=== PATIENT | female | born 1945 | race Caucasian/White ===

== ENCOUNTER 2018-12-22 06:46 | Emergency (ER) | payer BC, MEDICARE ==
[~2018-12-22] VITALS: Ht 172.7 cm; Wt 89.5 kg
[~2018-12-22 06:46] MED LIST: MULT-955 PO; VORT10TA PO
[2018-12-22 07:02] VITALS: BP 154/57
[2018-12-22] MEDS ORDERED: OMEP40CA37 PO (07:26)
[2018-12-22] MEDS ORDERED: CHOL200052 PO (07:27)
[2018-12-22] MEDS ORDERED: NAPR-56 PO (08:33)
[2018-12-22] MEDS ORDERED: HYDR-4353 PO (08:33)
[2018-12-22] MEDS ORDERED: naproxen 500mg tablet PO ONE (08:35)
[2018-12-22] MEDS: HYDROcodone/acetaminophen 10/325mg tab PO ONE ×2 (08:57→08:58)
== END 2018-12-22 09:26 | disposition home or self-care (01) ==
LOC: ER 06:47
DX: M25.462 Effusion, left knee (principal); M25.562 Pain in left knee; G89.29 Other chronic pain; Z79.899 Other long term (current) drug therapy; Z90.710 Acquired absence of both cervix and uterus; Z90.49 Acquired absence of other specified parts of digestive tract; Z98.890 Other specified postprocedural states; W18.39XA Other fall on same level, initial encounter; Y93.89 Activity, other specified; Y92.89 Other specified places as the place of occurrence of the external cause; Y99.8 Other external cause status
CPT/HCPCS: 29505; 73564; 99283

== ENCOUNTER 2019-12-31 10:41 | Emergency (ER) | payer BC, MEDICARE ==
[~2019-12-31] VITALS: Ht 172.7 cm; Wt 98.5 kg
[~2019-12-31 10:41] MED LIST changes: +CHOL200052 PO; +OMEP40CA13 PO; -VORT10TA PO
[2019-12-31 13:34] VITALS: BP 169/92
== END 2019-12-31 13:46 | disposition home or self-care (01) ==
LOC: ER 10:41
DX: I83.92 Asymptomatic varicose veins of left lower extremity (principal); G89.29 Other chronic pain; Z90.49 Acquired absence of other specified parts of digestive tract; Z90.710 Acquired absence of both cervix and uterus; Z79.899 Other long term (current) drug therapy
CPT/HCPCS: 93971; 99284

== ENCOUNTER 2020-03-18 08:51 | Emergency (ER) | payer BC, MEDICARE ==
[~2020-03-18] VITALS: Ht 172.7 cm; Wt 90.9 kg
[2020-03-18] MEDS ORDERED: BACDS PO (09:11)
[2020-03-18 09:35] VITALS: BP 150/72
== END 2020-03-18 09:36 | disposition home or self-care (01) ==
LOC: ER 08:52
DX: L02.411 Cutaneous abscess of right axilla (principal); G89.29 Other chronic pain; Z90.49 Acquired absence of other specified parts of digestive tract; Z90.710 Acquired absence of both cervix and uterus; Z98.890 Other specified postprocedural states; Z79.899 Other long term (current) drug therapy
CPT/HCPCS: 99283

== ENCOUNTER 2021-01-01 08:53 | Emergency (ER) | payer BC, MEDICARE ==
[~2021-01-01] VITALS: Ht 172.7 cm; Wt 92.6 kg
[2021-01-01 09:06] VITALS: BP 145/91
== END 2021-01-01 10:44 | disposition home or self-care (01) ==
LOC: ER 08:53
DX: M17.12 Unilateral primary osteoarthritis, left knee (principal); M71.22 Synovial cyst of popliteal space [Baker], left knee; M25.462 Effusion, left knee; G89.29 Other chronic pain; Z90.49 Acquired absence of other specified parts of digestive tract; Z90.710 Acquired absence of both cervix and uterus; Z98.890 Other specified postprocedural states; Z79.899 Other long term (current) drug therapy; W19.XXXA Unspecified fall, initial encounter; Y93.89 Activity, other specified; Y92.89 Other specified places as the place of occurrence of the external cause; Y99.8 Other external cause status
CPT/HCPCS: 73564; 93971; 99284

== ENCOUNTER 2023-12-10 11:36 | Inpatient (IN) | payer BC, MEDICARE ==
[~2023-12-10] VITALS: Ht 172.7 cm; Wt 98.8 kg
[~2023-12-10 11:36] MED LIST changes: +LOPE2CAP PO; +MECO10005; -OMEP40CA13 PO; +OMEP40CA21 PO; +ONDA4TAB12 PO; +ZINC50TA67 PO
[2023-12-10 13:09] LABS: BASOPHILS % (AUTO) 0.3 % (0-1); EOSINOPHILS # (AUTO) 0.1 X10'3 (0-0.9); EOSINOPHILS % (AUTO) 0.6 % (0-6); HEMATOCRIT 39.2 % (35.0-45.0); LYMPHOCYTES # (AUTO) 1.5 X10'3 (1.1-4.8); LYMPHOCYTES % (AUTO) 14.2 % (21-51); MEAN CORPUSCULAR HEMOGLOBIN 30.6 PG (27.0-31.0); MEAN CORPUSCULAR HGB CONC 33.2 g/dL (33.0-36.5); MEAN CORPUSCULAR VOLUME 92.1 FL (78-98); MEAN PLATELET VOLUME 9.4 FL (7.4-10.4); MONOCYTES # (AUTO) 0.8 X10'3 (0-0.9); MONOCYTES % (AUTO) 7.9 % (2-12); NEUTROPHILS # (AUTO) 8.3 X10'3 (1.8-7.7); PLATELET COUNT 260 X10'3 (140-440); RED BLOOD COUNT 4.26 X10'6 (4.20-5.60); RED CELL DISTRIBUTION WIDTH 14.8 % (11.5-14.5); WHITE BLOOD COUNT 10.7 X10'3 (4.5-11.0)
[2023-12-10 13:20] LABS: ALBUMIN 3.9 G/DL (3.4-5.0); ANION GAP 12 (8-16); BLOOD UREA NITROGEN 29 MG/DL (7-18); BUN/CREATININE RATIO 18.6 (10.0-20.0); CALCIUM 9.7 MG/DL (8.5-10.1); CHLORIDE 106 MMOL/L (99-107); CREATININE 1.56 MG/DL (0.40-0.90); GLUCOSE 116 MG/DL (70-104); PRO BRAIN NATRIURETIC PEPTIDE 434 PG/ML (0-450); SODIUM 143 MMOL/L (135-145); TOTAL CARBON DIOXIDE 24.6 MMOL/L (24-32); eCRCL 30 ML/MIN; eGFR 32 ML/MIN
[2023-12-10] MEDS: aspirin 81mg tab.chew PO ONE (14:35)
[2023-12-10 15:21] LABS: BILIRUBIN,URINE NEGATIVE (Neg); CLARITY,URINE SLIGHTLY CLOUDY (Clear); COLOR,URINE YELLOW (Yellow); GLUCOSE, URINE NEGATIVE (Neg); KETONES,URINE NEGATIVE (Neg); LEUKOCYTE ESTERASE ,URINE SMALL (Neg); NITRITES, URINE NEGATIVE (Neg); OCCULT BLOOD,URINE NEGATIVE (Neg); PROTEIN,URINE TRACE mg/dl (Neg); UROBILINOGEN,URINE 0.2 E.U/dL (0.2-1.0)
[2023-12-10 15:22] LABS: APTT 25 SECONDS (22-32); PROTHROMBIN TIME 10.5 SECONDS (9.0-12.0)
[2023-12-10 15:22] LABS: UA COLLECTION TYPE CLN CATCH MIDSTREAM
[2023-12-10 15:25] LABS: MAGNESIUM 1.7 MG/DL (1.5-2.4)
[2023-12-10 15:34] LABS: BACTERIA,URINE FEW /HPF (Neg); HYALINE CASTS 0-3 /LPF (NEGATIVE); MUCUS STRANDS FEW /LPF (Neg); RBC,URINE NONE SEEN /HPF (0-2); SQUAMOUS EPITHELIAL CELL,UR FEW /LPF (FEW); WBC CLUMPS,URINE FEW /HPF (NEGATIVE)
[2023-12-10] MEDS: nitroGLYCERIN 1gm ointment UD TP ONE (19:49)
[2023-12-10] MEDS ORDERED: magnesium 2GM in 50ml NS 50 ML IV PRN (21:45)
[2023-12-10] MEDS ORDERED: magnesium Cl slow-release 64mg tablet PO PRN (21:45)
[2023-12-10] MEDS ORDERED: ondansetron/PF 4mg/2ml inj IV PRN (21:45)
[2023-12-10] MEDS ORDERED: potassium Cl 40MEQ/1/2NS 520ml 520 ML IV PRN (21:45)
[2023-12-10] MEDS ORDERED: acetaminophen 325mg tablet PO PRN ×2 (21:45)
[2023-12-10] MEDS ORDERED: morphine 2 MG/ML inj. syringe IV PRN (21:45)
[2023-12-10] MEDS ORDERED: magnesium 4gm in 100ml NS 100 ML IV PRN (21:45)
[2023-12-10] MEDS ORDERED: potassium Cl 20 mEq SR tablet PO PRN ×2 (21:45)
[2023-12-10 23:00] VITALS: BP 133/68; PULSE 91; RESP 16; TEMP 97.4; O2SAT 98
[2023-12-10] MEDS: normal saline 1000ml 1,000 ML IV SCH (23:00)
[2023-12-11] VITALS (12 sets, daily range): BP systolic 100–139; BP diastolic 51–77; PULSE 67–104; RESP 14–22; TEMP 97.6–99.6; O2SAT 92–97
[2023-12-11 05:21] LABS: BASOPHILS % (AUTO) 0.1 % (0-1); EOSINOPHILS # (AUTO) 0.1 X10'3 (0-0.9); EOSINOPHILS % (AUTO) 1.1 % (0-6); HEMATOCRIT 33.8 % (35.0-45.0); HEMOGLOBIN 11.3 g/dl (12.0-16.0); LYMPHOCYTES # (AUTO) 1.5 X10'3 (1.1-4.8); LYMPHOCYTES % (AUTO) 18.6 % (21-51); MEAN CORPUSCULAR HEMOGLOBIN 30.8 PG (27.0-31.0); MEAN CORPUSCULAR HGB CONC 33.5 g/dL (33.0-36.5); MEAN PLATELET VOLUME 8.8 FL (7.4-10.4); MONOCYTES # (AUTO) 0.8 X10'3 (0-0.9); MONOCYTES % (AUTO) 10.5 % (2-12); NEUTROPHILS # (AUTO) 5.4 X10'3 (1.8-7.7); NEUTROPHILS % (AUTO) 69.7 % (42-75); PLATELET COUNT 199 X10'3 (140-440); RED BLOOD COUNT 3.68 X10'6 (4.20-5.60); RED CELL DISTRIBUTION WIDTH 14.8 % (11.5-14.5); WHITE BLOOD COUNT 7.8 X10'3 (4.5-11.0)
[2023-12-11 05:30] LABS: ALANINE AMINOTRANSFERASE 17 U/L (12-78); ALBUMIN 3.2 G/DL (3.4-5.0); ALBUMIN/GLOBULIN RATIO 0.9 (1.1-1.5); ALKALINE PHOSPHATASE 75 IU/L (46-116); ANION GAP 10 (8-16); ASPARTATE AMINO TRANSFERASE 12 U/L (10-37); BILIRUBIN,TOTAL 0.7 MG/DL (0.1-1.0); BLOOD UREA NITROGEN 35 MG/DL (7-18); BUN/CREATININE RATIO 27.6 (10.0-20.0); CALCIUM 8.8 MG/DL (8.5-10.1); CHLORIDE 107 MMOL/L (99-107); CREATININE 1.27 MG/DL (0.40-0.90); GLUCOSE 123 MG/DL (70-104); POTASSIUM 3.9 MMOL/L (3.5-5.1); SODIUM 141 MMOL/L (135-145); TOTAL CARBON DIOXIDE 23.7 MMOL/L (24-32); TOTAL PROTEIN 6.9 G/DL (6.4-8.2); eCRCL 37 ML/MIN; eGFR 41 ML/MIN
[2023-12-11] MEDS ORDERED: ATOR10TA70 PO (07:33)
[2023-12-11] MEDS ORDERED: LISI20TA28 PO (07:33)
[2023-12-11] MEDS ORDERED: DULO30CA52 PO (07:33)
[2023-12-11] MEDS ORDERED: METF-1203 PO (07:33)
[2023-12-11] MEDS: heparin, porcine 5000 units/ml vial SQ SCH (07:35)
[2023-12-11] MEDS: HYDROcodone/acetaminophen 5mg/325mg tablet PO PRN (07:43)
[2023-12-11] MEDS ORDERED: OMEP20CA16 PO (11:46)
[2023-12-11] MEDS: regadenoson 0.4mg/5ml syringe IV ONE (11:55)
[2023-12-11] MEDS: baclofen 10mg tablet PO PRN (16:12)
[2023-12-11] MEDS: carVEDilol 3.125mg tablet PO SCH (19:55)
[2023-12-11] MEDS: gabapentin 300mg capsule PO SCH (19:55)
[2023-12-11] MEDS: HYDROcodone/acetaminophen 10/325mg tab PO PRN (20:01)
[2023-12-11] MEDS: CefTRIAXone/D5W-Rocephin 1gm 50 ML IV SCH (20:46)
[2023-12-12 02:00] VITALS: BP 132/56; PULSE 101; RESP 22; TEMP 98.1; O2SAT 92
[2023-12-12 06:35] LABS: ALANINE AMINOTRANSFERASE 13 U/L (12-78); ALBUMIN/GLOBULIN RATIO 0.8 (1.1-1.5); ALKALINE PHOSPHATASE 79 IU/L (46-116); ANION GAP 6 (8-16); ASPARTATE AMINO TRANSFERASE 9 U/L (10-37); BILIRUBIN,TOTAL 0.6 MG/DL (0.1-1.0); BLOOD UREA NITROGEN 27 MG/DL (7-18); BUN/CREATININE RATIO 32.5 (10.0-20.0); CALCIUM 8.9 MG/DL (8.5-10.1); CHLORIDE 106 MMOL/L (99-107); CREATININE 0.83 MG/DL (0.40-0.90); GLUCOSE 108 MG/DL (70-104); POTASSIUM 4.2 MMOL/L (3.5-5.1); SODIUM 140 MMOL/L (135-145); eCRCL 57 ML/MIN; eGFR 67 ML/MIN
[2023-12-12 07:22] LABS: BASOPHILS % (AUTO) 0.2 % (0-1); EOSINOPHILS # (AUTO) 0.1 X10'3 (0-0.9); EOSINOPHILS % (AUTO) 1.5 % (0-6); HEMATOCRIT 34.7 % (35.0-45.0); HEMOGLOBIN 11.7 g/dl (12.0-16.0); LYMPHOCYTES # (AUTO) 1.6 X10'3 (1.1-4.8); LYMPHOCYTES % (AUTO) 24.5 % (21-51); MEAN CORPUSCULAR HEMOGLOBIN 30.5 PG (27.0-31.0); MEAN CORPUSCULAR HGB CONC 33.6 g/dL (33.0-36.5); MEAN CORPUSCULAR VOLUME 90.7 FL (78-98); MEAN PLATELET VOLUME 8.9 FL (7.4-10.4); MONOCYTES # (AUTO) 0.6 X10'3 (0-0.9); MONOCYTES % (AUTO) 9.4 % (2-12); NEUTROPHILS # (AUTO) 4.1 X10'3 (1.8-7.7); NEUTROPHILS % (AUTO) 64.4 % (42-75); PLATELET COUNT 211 X10'3 (140-440); RED BLOOD COUNT 3.82 X10'6 (4.20-5.60); RED CELL DISTRIBUTION WIDTH 14.4 % (11.5-14.5); WHITE BLOOD COUNT 6.4 X10'3 (4.5-11.0)
[2023-12-12 07:37] VITALS: BP 139/76; PULSE 79; RESP 16; TEMP 99.6; O2SAT 92
[2023-12-12] MEDS ORDERED: metFORMIN 500mg tablet PO SCH (08:00)
[2023-12-12] MEDS ORDERED: atorvastatin 10mg tablet PO SCH (08:00)
[2023-12-12] MEDS: pantoprazole 40mg Tablet.DR PO SCH (09:07)
[2023-12-12] MEDS: aspirin 81mg tab.chew PO SCH (09:08)
[2023-12-12] MEDS: duloxetine 30mg CAPSULE.DR PO SCH (09:08)
[2023-12-12] MEDS: lisinopril 20mg tablet PO SCH (09:09)
[2023-12-12] MEDS: atorvastatin 20mg tablet PO SCH (09:09)
[2023-12-12] MEDS: cholecalciferol (vitamin D3) 1,000 unit (25mcg) tablet PO SCH (09:10)
[2023-12-12] MEDS: morphine 2 MG/ML inj. syringe IV PRN (09:16)
[2023-12-12 12:01] VITALS: BP 124/67; PULSE 87; RESP 16; TEMP 97.5; O2SAT 91
[2023-12-12 15:46] VITALS: BP 112/52; PULSE 88; RESP 13; TEMP 98.1; O2SAT 95
[2023-12-12] MEDS ORDERED: BAC10T PO (16:59)
[2023-12-12] MEDS ORDERED: ASPI81TA53 PO (16:59)
[2023-12-12] MEDS ORDERED: COR3.125T PO (16:59)
[2023-12-12] MEDS ORDERED: gabapentin capsule PO (16:59)
[2023-12-12] MEDS ORDERED: ATOR20TA66 PO (16:59)
[2023-12-12 17:21] VITALS: RESP 13
== END 2023-12-12 18:05 | disposition home or self-care (01) | DRG 551 ==
LOC: ER 11:37 → ED HOLD 21:50 → EDBEDREQ 22:35 → PCU 3S 22:53
PROVIDERS: ADMIT Internal Medicine; ATTEND Family Medicine
DX: M50.30 Other cervical disc degeneration, unspecified cervical region (principal); N17.0 Acute kidney failure with tubular necrosis; I12.9 Hypertensive chronic kidney disease with stage 1 through stage 4 chronic kidney disease, or unspecified chronic kidney disease; N18.9 Chronic kidney disease, unspecified; E11.9 Type 2 diabetes mellitus without complications; G89.29 Other chronic pain; E78.5 Hyperlipidemia, unspecified; I25.119 Atherosclerotic heart disease of native coronary artery with unspecified angina pectoris; Z82.49 Family history of ischemic heart disease and other diseases of the circulatory system; Z90.710 Acquired absence of both cervix and uterus; Z91.041 Radiographic dye allergy status; Z90.49 Acquired absence of other specified parts of digestive tract
CPT/HCPCS: 36415; 71045; 72141; 78452; 80048; 80053; 81001; 83690; 83735; 83880; 84484; 85025; 85610; 85730; 87081; 87088; 93005; 93017; 93306; 97110; 97116; 97161; 99285; A4615; A9500; G0378; J0696; J1644; J2270; J2785; J7030; J7040

== ENCOUNTER 2024-03-24 06:38 | Emergency (ER) | payer BC, MEDICARE ==
[~2024-03-24] VITALS: Ht 172.7 cm; Wt 91.8 kg
[~2024-03-24 06:38] MED LIST changes: +ASPI81TA53 PO; +ATOR20TA66 PO; +BAC10T PO; +COR3.125T PO; +DULO30CA52 PO; +LISI20TA28 PO; -LOPE2CAP PO; -MECO10005; +METF-1203 PO; -MULT-955 PO; +OMEP20CA16 PO; -OMEP40CA21 PO; -ONDA4TAB12 PO; +gabapentin capsule PO
[2024-03-24 06:43] VITALS: TEMP 96.6
[2024-03-24] MEDS ORDERED: TRAM50TA2 PO (09:33)
[2024-03-24 09:40] VITALS: BP 150/74; PULSE 87; RESP 16; O2SAT 96
== END 2024-03-24 09:42 | disposition home or self-care (01) ==
LOC: ER 06:39
DX: M25.552 Pain in left hip (principal); M25.512 Pain in left shoulder; E78.00 Pure hypercholesterolemia, unspecified; E11.9 Type 2 diabetes mellitus without complications; Z91.040 Latex allergy status; Z79.82 Long term (current) use of aspirin; Z79.899 Other long term (current) drug therapy; Z79.84 Long term (current) use of oral hypoglycemic drugs; Z90.49 Acquired absence of other specified parts of digestive tract; Z90.710 Acquired absence of both cervix and uterus
CPT/HCPCS: 73030; 73502; 99284